=== PATIENT | male | born 1965 | race Caucasian/White ===

== ENCOUNTER 2017-07-02 15:37 | Emergency (ER) | payer OTHER ==
[~2017-07-02] VITALS: Ht 175.3 cm; Wt 79.4 kg
[~2017-07-02 15:37] MED LIST: CLIN300C3 PO; DIPH1TAB45 PO; IBUP-15 PO; LISI-556 PO; LOVA10TA PO; MECL25TA3 PO; METF-380 PO; METF500T4 PO; NAPR-243 PO; NAPR250T PO; OMEP20CA12 PO; ONDA4TAB8 PO; PANT40TA2 PO; SCOP1PAT TD; SUCR1TAB36 PO
[2017-07-02] MEDS ORDERED: MELO15TA39 (16:04)
[2017-07-02] MEDS ORDERED: FENO160T12 (16:04)
[2017-07-02] MEDS ORDERED: ATOR10TA66 (16:04)
[2017-07-02] MEDS ORDERED: LISI2.5T (16:04)
[2017-07-02] MEDS ORDERED: NS IV 1000 ML 1,000 ML IV ONE (16:04)
[2017-07-02] MEDS ORDERED: METF500T4 PO (16:05)
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
[2017-07-02 16:36] LABS: BASOPHILS % (AUTO) 0 % (0-10); EOSINOPHILS # (AUTO) 0.4 10^3/uL (0.0-0.3); EOSINOPHILS % (AUTO) 3 % (0-10); LYMPHOCYTES # (AUTO) 4.9 X 10^3 (1.0-4.0); LYMPHOCYTES % (AUTO) 35 % (12-44); MEAN CORPUSCULAR HEMOGLOBIN 31 PG (25-34); MEAN CORPUSCULAR HGB CONC 37 G/DL (32-36); MEAN CORPUSCULAR VOLUME 84 FL (80-99); MEAN PLATELET VOLUME 11.1 FL (7.4-10.4); MONOCYTES # (AUTO) 0.8 X 10^3 (0.0-1.0); MONOCYTES % (AUTO) 5 % (0-12); NEUTROPHILS % (AUTO) 57 % (42-75); PLATELET COUNT 337 10^3/uL (130-400); RED CELL DISTRIBUTION WIDTH 12.4 % (10.0-14.5)
[2017-07-02] MEDS ORDERED: inSUlin (REGULAR) HUMAN 1 UNIT/0.01 ML (CHARGE PER UNIT) IV STA (16:37)
[2017-07-02 16:46] LABS: ALBUMIN 4.5 GM/DL (3.2-4.5); BILIRUBIN,TOTAL 0.5 MG/DL (0.1-1.0); CALCIUM 9.9 MG/DL (8.5-10.1); CREATININE SERUM 1.41 MG/DL (0.60-1.30); POTASSIUM 3.7 MMOL/L (3.6-5.0); TOTAL PROTEIN 7.1 GM/DL (6.4-8.2)
[2017-07-02 17:01] LABS: ATYPICAL LYMPHOCYTES 3 %; BAND NEUTROPHILS 0 %; BASOPHILS % (MANUAL) 0 %; EOSINOPHILS % (MANUAL) 1 %; LYMPHOCYTES % (MANUAL) 37 %; NEUTROPHILS % (MANUAL) 53 %
[2017-07-02 17:08] LABS: BILIRUBIN,URINE NEGATIVE (NEGATIVE); KETONES,URINE NEGATIVE (NEGATIVE); LEUKOCYTE ESTERASE ,URINE NEGATIVE (NEGATIVE); NITRITE,URINE NEGATIVE (NEGATIVE); PH,URINE 6.5 (5-9); PROTEIN,URINE NEGATIVE (NEGATIVE); UROBILINOGEN,URINE 1 MG/DL (NORMAL)
[2017-07-02 17:17] LABS: SQUAMOUS EPITHELIAL CELL,UR RARE /HPF
--- NOTE | 2017-07-02 18:46 | Diagnostic Imaging Report ---
PROCEDURE: CT urinary tract, rule out kidney stone. TECHNIQUE: Multiple contiguous axial images were obtained through the abdomen and pelvis without the use of intravenous contrast. DATE: July 02, 2017. COMPARISON: [facility] June 15, 2015. CT abdomen and pelvis April 27, 2011. INDICATION: 51-year-old male, right flank pain for 2 months. FINDINGS: There are limitations for evaluation of the abdominal organs, neoplastic processes, abscess, and limited evaluation of the vasculature relating to the lack of intravenous contrast. There is a 4 mm pleurally based right middle lobe pulmonary nodule on axial image 10 unchanged since April 27, 2011 compatible with benign etiology. There is a partially visualized 2 mm right lower lobe pulmonary nodule on axial image 1 which is present on prior CT. This is grossly unchanged in size although incompletely visualized on current exam. There is very mild atelectasis or scarring in the lingula. Additional visualized portions of the lung bases are clear. The heart is not enlarged. There is no pericardial effusion. The liver is normal in size and contour. There are small areas of relatively increased attenuation within the liver subjacent to the gallbladder fossa compatible with areas of focal fatty sparing. The liver does measure mildly decreased in attenuation consistent with diffuse fatty infiltration of the liver. The gallbladder is unremarkable. There is no intrahepatic or extrahepatic bile duct dilation. There is fatty replacement of the pancreatic parenchyma, particularly in the pancreatic head. There is no abnormal dilation of the main pancreatic duct. The spleen is not enlarged. The adrenal glands are unremarkable. Unremarkable appearance of the renal parenchyma. The urinary collecting systems are not distended. There is no identified renal or ureteral stone. The urinary bladder is unremarkable in appearance. There is diverticulosis without evidence of acute diverticulitis. The intestinal tract is not distended. The appendix is best seen on axial image 105 and adjacent sequential images. There is no evidence of acute appendicitis. There is no free intraperitoneal air. There is a small fat-containing umbilical hernia. There is no drainable fluid collection. There is no free pelvic fluid. There are atherosclerotic calcifications. There is a retroaortic left renal vein. There is no identified abnormally enlarged lymph node in the abdomen or pelvis which meets CT size criteria for adenopathy. There is a 5 mm sclerotic lesion in the right intertrochanteric femur on axial image 149 with narrow zone of transition. This most likely is benign although is not specific. There is no identified acute bony abnormality. There is transitional lumbosacral anatomy. IMPRESSION: CT ABDOMEN AND PELVIS. 1. Mild diffuse fatty infiltration of the liver. 2. No identified acute abnormality within the abdomen or pelvis. Dictated by: Dictated on workstation # [id number]
[2017-07-02] MEDS ORDERED: NFMET1000 PO (19:22)
[2017-07-02] MEDS ORDERED: METO-270 PO (19:22)
[2017-07-02 19:37] VITALS: BP 121/74
== END 2017-07-02 19:37 | disposition home or self-care (01) ==
LOC: EDUNIT# 15:37 → ER 15:39
DX: E11.65 Type 2 diabetes mellitus with hyperglycemia (principal); T38.3X5A Adverse effect of insulin and oral hypoglycemic [antidiabetic] drugs, initial encounter; E78.00 Pure hypercholesterolemia, unspecified; I10 Essential (primary) hypertension; Z79.84 Long term (current) use of oral hypoglycemic drugs
CPT/HCPCS: 36415; 74176; 80053; 81000; 82962; 85007; 85027; 96361; 96374

== ENCOUNTER 2017-08-03 11:47 | Outpatient (CLI) | payer OTHER ==
[~2017-08-03] VITALS: Ht 175.3 cm; Wt 80.4 kg
[~2017-08-03 11:47] MED LIST changes: +ATOR10TA66; +FENO160T12; +LISI2.5T; +MELO15TA39; +METO-270 PO; +NFMET1000 PO
[2017-08-03] MEDS ORDERED: MELO15TA39 PO (12:03)
[2017-08-03] MEDS ORDERED: METO-270 PO (12:03)
[2017-08-03] MEDS ORDERED: FENO160T12 PO (12:03)
[2017-08-03] MEDS ORDERED: ATOR10TA66 PO (12:03)
[2017-08-03] MEDS ORDERED: METF1000 PO (12:03)
[2017-08-03 12:07] VITALS: BP 147/85
[2017-08-03 12:32] LABS: BASOPHILS % (AUTO) 0 % (0-10); EOSINOPHILS # (AUTO) 0.4 10^3/uL (0.0-0.3); EOSINOPHILS % (AUTO) 5 % (0-10); LYMPHOCYTES % (AUTO) 47 % (12-44); MEAN CORPUSCULAR HEMOGLOBIN 32 PG (25-34); MEAN CORPUSCULAR HGB CONC 36 G/DL (32-36); MEAN CORPUSCULAR VOLUME 88 FL (80-99); MEAN PLATELET VOLUME 10.7 FL (7.4-10.4); MONOCYTES # (AUTO) 0.5 X 10^3 (0.0-1.0); MONOCYTES % (AUTO) 6 % (0-12); NEUTROPHILS # (AUTO) 3.6 X 10^3 (1.8-7.8); NEUTROPHILS % (AUTO) 42 % (42-75); PLATELET COUNT 298 10^3/uL (130-400); RED BLOOD COUNT 4.26 10^6/uL (4.35-5.85); RED CELL DISTRIBUTION WIDTH 12.5 % (10.0-14.5); WHITE BLOOD COUNT 8.6 10^3/uL (4.3-11.0)
== END 2017-08-03 12:51 | disposition home or self-care (01) ==
LOC: PREOP 11:47
PROVIDERS: ATTEND Surgery
DX: Z01.812 Encounter for preprocedural laboratory examination (principal); K42.9 Umbilical hernia without obstruction or gangrene; K21.9 Gastro-esophageal reflux disease without esophagitis; R11.2 Nausea with vomiting, unspecified; Z80.0 Family history of malignant neoplasm of digestive organs
CPT/HCPCS: 36415; 85025; 87081

== ENCOUNTER 2017-08-09 07:50 | Day surgery (SDC) | payer OTHER ==
[~2017-08-09] VITALS: Ht 175.3 cm; Wt 80.4 kg
[~2017-08-09 07:50] MED LIST changes: +ATOR10TA66 PO; +FENO160T12 PO; +MELO15TA39 PO; +METF1000 PO
--- OUTSIDE RECORDS SUMMARY | 2017-08-09 07:54 | XMS REPORT | Continuity of Care Document ---
Author Author [facility] [employer]. Organization [facility]. Address Unknown Phone Unavailable Care Team Providers Care Edge Grinder Name Role Phone Unavailable Unavailable Insurance Providers Payer Name Policy Number Subscriber Name Relationship [facility] [id number] EH YOUNG SELF / SAME PATIENT Advance Directives Directive Response Recorded Date/Time Advance Directives: Unknown 08/13/15 0:15am Chief Complaint and Reason for Visit Reason for Visit ER ADMIT Problems Medical Problems Problem Onset Date Status Chest pain Unknown Active H. pylori infection Unknown Active Chest pain Unknown Active Medications Medication Dose Route Sig Days/Qty Instructions Order Date Discontinued Date Status metFORMIN (Glucophage) 500 MG TABLET 500 MG ORAL Active Omeprazole (Prilosec) 40 MG CAPSULE 40 MG ORAL Once daily PRN acid 10 Qty 08/12/15 08/13/15 Discontinued Clarithromycin (Biaxin) 500 MG TABLET 250 MG ORAL 0800,1700 13 Qty 03/22 Active Amoxicillin (Amoxil*) 250 MG CAPSULE 250 MG ORAL Every eight hours 00,08, 16 39 Qty 08/13/15 Active Omeprazole (Prilosec) 40 MG CAPSULE 40 MG ORAL Twice daily 60 Qty 08/13 Active Social History Social History Problem Response Recorded Date/Time Occupation/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 Appointment Information Follow-up with PCP within 1 week. Referral to GI for outpatient EGD due to +H pylori. Plan of Care Problem: Diminished stamina Goal: Regain independent living Instructions: SEE LUISA PER APPN'T Plan of Care Discharge Date 08/13/15 4:50pm Disposition HOME, SELF-CARE or ASST LIVING Instructions/Education Provided Omeprazole (By mouth) Amoxicillin (By mouth) Clarithromycin (By mouth) Chest Pain (ED) Chest Pain (DC) Prescriptions See Medications Section Referrals FAMILY PRACTICE 1 Week PCP GASTROENTEROLOGY 2 Weeks GASTRO Functional Status Query Response Date Recorded Paralysis: N August 13, 2015 0:15am Steady Gait: Y August 13, 2015 7:39am Weakness: N August 13, 2015 0:15am Hand Intelligence Director Equal: Y August 13, 2015 7:39am Contractures: N August 13, 2015 0:15am Alert: Y August 13, 2015 7:39am Oriented x4: Y August 13, 2015 7:39am Allergies, Adverse Reactions, Alerts Allergen Type Severity Reaction Status Last Updated No Known Allergies Allergy Unknown Active 08/12/15 Immunizations Name Date Given Type Tetanus Yes Historical Hepatitis N Historical Vital Signs Vital Reading Collection Date/Time Result Blood Pressure 08/13/15 12:17pm 127/79 Blood Pressure Source 08/13/15 12:17pm BARRY Patient Temperature 08/13/15 12:17pm 97.8 Temperature Source 08/13/15 12:17pm O Respiratory Rate 08/13/15 12:17pm 22 Pulse Rate 08/13/15 12:17pm 86 Pulse Location 08/13/15 12:17pm DYN Bedside Pulse Oximetry 08/13/15 12:17pm 97 Height 08/12/15 11:19pm 175.3 cm Height 08/12/15 11:19pm 5 ft 9 in Weight 08/12/15 11:19pm 76.4 kg Weight 08/12/15 11:19pm 168.0 lb Body Mass Index 08/12/15 11:19pm 24.9 Procedures No Known History of Procedures. Results Test Source Date Result Interp. Ref. Range Comments Rapid Troponin I 08/12/15 <0.02 ng/mL 0.00 - 0.08 Lipase 08/12/15 28 U/L 23 - 300 D-Dimer 08/12/15 < 200.00 ng/mLDDu L 200 - 230 Helicobacter pylori IgG Antibody 08/12/15 POSITIVE H - B-Type Natriuretic Peptide 08/12/15 <15 pg/mL 0 - 100 Basophils # 08/13/15 0.0 0.0 - 0.2 Basophils % 08/13/15 0.2 % 0.0 - 2.0 Eosinophils # 08/13/15 0.2 0.0 - 0.7 Eosinophils % 08/13/15 1.3 % 0 - 4.0 Granulocytes # 08/13/15 8.5 H 1.4 - 6.5 Granulocytes (%) 08/13/15 68.1 % 42.2 - 75.2 Hematocrit 08/13/15 40.2 % L 42.0 - 52.0 Hemoglobin 08/13/15 14.4 g/dl 13.5 - 18.0 Lymphocytes # 08/13/15 2.5 1.2 - 3.4 Lymphocytes % 08/13/15 20.3 % 20.0 - 51.0 Mean Corpuscular Hemoglobin 08/13/15 31 pg 27.0 - 31.0 Mean Corpuscular Hemoglobin Concent 08/13/15 36 g/dl 33.0 - 37.0 Mean Corpuscular Volume 08/13/15 87 fl 80.0 - 100.0 Mean Platelet Volume 08/13/15 9.9 fl 7.4 - 10.4 Monocytes # 08/13/15 1.2 H 0.1 - 0.6 Monocytes % 08/13/15 9.5 % H 1.7 - 9.3 Platelet Count 08/13/15 335 K/mm3 130 - 400 Red Blood Count 08/13/15 4.60 M/mm3 4.20 - 5.60 Red Cell Distribution Width 08/13/15 12.9 % 11.5 - 14.5 White Blood Count 08/13/15 12.5 K/mm3 H 4.8 - 10.8 Alanine Aminotransferase (ALT/SGPT) 08/13/15 34 U/L 21 - 72 Albumin 08/13/15 4.2 gm/dL 3.5 - 5.0 Alkaline Phosphatase 08/13/15 97 U/L 50 - 136 Anion Gap 08/13/15 7 mmol/L 7 - 16 Aspartate Amino Transf (AST/SGOT) 08/13/15 21 U/L 15 - 37 Blood Urea Nitrogen 08/13/15 17 mg/dL 9 - 20 Calcium Adjusted for Albumin 08/13/15 8.8 mg/dL 8.4 - 10.2 Calcium Level 08/13/15 9.0 mg/dL 8.4 - 10.2 Carbon Dioxide Level 08/13/15 30 mmol/L 22 - 30 Chloride Level 08/13/15 102 mmol/L 98 - 107 Creatinine 08/13/15 0.84 mg/dL 0.66 - 1.25 Estimated GFR () 08/13/15 117 - Estimated GFR (Non- 08/13/15 97 - Glucose Level 08/13/15 104 mg/dL 74 - 106 Potassium Level 08/13/15 3.7 mmol/L 3.4 - 5.0 Serum Total Protein 08/13/15 6.8 gm/dL 6.4 - 8.2 Sodium Level 08/13/15 138 mmol/L 137 - 145 Total Bilirubin 08/13/15 0.8 mg/dL 0.0 - 1.0 Troponin I 08/13/15 < 0.012 ng/mL 0.000 - 0.034 Whole Blood Glucose 08/13/15 106 mg/dL 70 - 110 Rapid Troponin I 08/12/15 <0.02 ng/mL 0.00 - 0.08 Lipase 08/12/15 28 U/L 23 - 300 D-Dimer 08/12/15 < 200.00 ng/mLDDu L 200 - 230 Helicobacter pylori IgG Antibody 08/12/15 POSITIVE H - B-Type Natriuretic Peptide 08/12/15 <15 pg/mL 0 - 100 Basophils # 08/13/15 0.0 0.0 - 0.2 Basophils % 08/13/15 0.2 % 0.0 - 2.0 Eosinophils # 08/13/15 0.2 0.0 - 0.7 Eosinophils % 08/13/15 1.3 % 0 - 4.0 Granulocytes # 08/13/15 8.5 H 1.4 - 6.5 Granulocytes (%) 08/13/15 68.1 % 42.2 - 75.2 Hematocrit 08/13/15 40.2 % L 42.0 - 52.0 Hemoglobin 08/13/15 14.4 g/dl 13.5 - 18.0 Lymphocytes # 08/13/15 2.5 1.2 - 3.4 Lymphocytes % 08/13/15 20.3 % 20.0 - 51.0 Mean Corpuscular Hemoglobin 08/13/15 31 pg 27.0 - 31.0 Mean Corpuscular Hemoglobin Concent 08/13/15 36 g/dl 33.0 - 37.0 Mean Corpuscular Volume 08/13/15 87 fl 80.0 - 100.0 Mean Platelet Volume 08/13/15 9.9 fl 7.4 - 10.4 Monocytes # 08/13/15 1.2 H 0.1 - 0.6 Monocytes % 08/13/15 9.5 % H 1.7 - 9.3 Platelet Count 08/13/15 335 K/mm3 130 - 400 Red Blood Count 08/13/15 4.60 M/mm3 4.20 - 5.60 Red Cell Distribution Width 08/13/15 12.9 % 11.5 - 14.5 White Blood Count 08/13/15 12.5 K/mm3 H 4.8 - 10.8 Alanine Aminotransferase (ALT/SGPT) 08/13/15 34 U/L 21 - 72 Albumin 08/13/15 4.2 gm/dL 3.5 - 5.0 Alkaline Phosphatase 08/13/15 97 U/L 50 - 136 Anion Gap 08/13/15 7 mmol/L 7 - 16 Aspartate Amino Transf (AST/SGOT) 08/13/15 21 U/L 15 - 37 Blood Urea Nitrogen 08/13/15 17 mg/dL 9 - 20 Calcium Adjusted for Albumin 08/13/15 8.8 mg/dL 8.4 - 10.2 Calcium Level 08/13/15 9.0 mg/dL 8.4 - 10.2 Carbon Dioxide Level 08/13/15 30 mmol/L 22 - 30 Chloride Level 08/13/15 102 mmol/L 98 - 107 Creatinine 08/13/15 0.84 mg/dL 0.66 - 1.25 Estimated GFR () 08/13/15 117 - Estimated GFR (Non- 08/13/15 97 - Glucose Level 08/13/15 104 mg/dL 74 - 106 Potassium Level 08/13/15 3.7 mmol/L 3.4 - 5.0 Serum Total Protein 08/13/15 6.8 gm/dL 6.4 - 8.2 Sodium Level 08/13/15 138 mmol/L 137 - 145 Total Bilirubin 08/13/15 0.8 mg/dL 0.0 - 1.0 Troponin I 08/13/15 < 0.012 ng/mL 0.000 - 0.034 Whole Blood Glucose 08/13/15 106 mg/dL 70 - 110 Encounters Encounter Location Date/Time Discharged Inpatient [facility] 08/13/15 4:50pm Discharged Emergency [facility] 08/12/15 11:09pm Registered Clinical [facility] 08/12/15 7:42pm Recent Diagnosis Chest pain H. pylori infection Chest pain
--- NOTE | 2017-08-09 07:58 | Progress Note-Pre Operative ---
Pre-Operative Progress Note H&P Reviewed The H&P was reviewed, patient examined and no changes noted. Date Seen by Provider: Aug 09, 2017 Time Seen by Provider: 07:55 Date H&P Reviewed: Aug 09, 2017 Time H&P Reviewed: 07:50 Pre-Operative Diagnosis: Symptomatic Umbilical hernia, Screening colonoscopy, Reflux ROSENDO CAAL APRN Aug 09, 2017 7:58 am
[2017-08-09] MEDS ORDERED: HYDROcodone/APAP 5 MG/325 MG (LORTAB) TAB PO ONE (08:00)
[2017-08-09] MEDS ORDERED: ONDANSETRON 4 MG/2 ML (SDV) Z0FRAN IVP PRN ×2 (08:00→12:45)
[2017-08-09] MEDS ORDERED: morphine INJ 10 MG/ML 1ML (SYR OR VIAL) IVP PRN (08:00)
[2017-08-09] MEDS ORDERED: ACETAMINOPHEN 325 MG TABLET/CAPLET (TYLENOL) PO PRN (08:00)
[2017-08-09 08:14] VITALS: BP 138/75
[2017-08-09] MEDS ORDERED: CATHETER FLUSH 10 ML SYR IV PRN (08:15)
[2017-08-09] MEDS ORDERED: ceFAZolin 1 GM/NS 50 ML IVPB IV ONE ×2 (08:15)
[2017-08-09] MEDS ORDERED: SEVOFLURANE (ULTANE) 15 ML INHAL SOLN ONE ×8 (10:26→12:31)
[2017-08-09] MEDS ORDERED: proPOfol 200 MG/20 ML (DIPRIVAN) VIAL IV ONE (10:26)
[2017-08-09] MEDS ORDERED: fentaNYL INJECTION 100 MCG/2 ML AMP ONE ×2 (10:26→11:12)
[2017-08-09] MEDS ORDERED: LIDOCAINE PF 2% 5 ML (XYLOCAINE) VIAL ONE (10:26)
[2017-08-09] MEDS ORDERED: MIDAZOLAM 2 MG/2 ML (VERSED) VIAL ONE (10:26)
[2017-08-09] MEDS ORDERED: ONDANSETRON 4 MG/2 ML (SDV) Z0FRAN ONE (10:26)
[2017-08-09] MEDS ORDERED: BUP/EPI 0.5% 1:200,000 (MARCAINE) 10ML VIAL IJ ONE (10:53)
[2017-08-09] MEDS ORDERED: ESMOLOL 100 MG/10 ML (BREVIBLOC) VIAL ONE (12:31)
--- NOTE | 2017-08-09 12:40 | Progress Note-Post Operative ---
Post-Operative Progess Note Surgeon (s)/Engineer Conductor (s) Surgeon MARVEL NUR MD Engineer Conductor: oliverio roy REGIONAL OPERATIONS DIRECTOR Pre-Operative Diagnosis Symptomatic Umbilical hernia, Screening colonoscopy, Reflux Post-Operative Diagnosis umbilical hernia(2cm), reflux esphagitis, fundal mass/severe gastritis, normal colon and rectum. Procedure & Operative Findings Date of Procedure 08/09/17 Procedure Performed/Findings open umbilical hernia repair with mesh. EGD with bx. Colonoscopy. Anesthesia Type general LMA Estimated Blood Loss Estimated blood loss (mL): minimal Specimens/Packing Specimens Removed antrum, fundal mass, GE jxn MARVEL NUR MD Aug 09, 2017 12:40 pm
[2017-08-09] MEDS ORDERED: HYDR-3816 PO (12:44)
--- NOTE | 2017-08-09 12:45 | Discharge Inst-Surgical ---
D/C Lap Instructions-BOOM New, Converted, or Re-Newed RX: RX on Chart Follow Up Appt in 2 weeks Activity as tolerated No driving for 24 hours No [address] while on pain medications Incentive Spirometry use every 2 hours while awake Regular Diet Symptoms to Report: Fever over 101 degree F, Nausea/Vomiting Infection Signs and Symptoms to report: Increased redness, Foul odor of wound, Increased drainage Bathing instructions: May shower Operative Area Clean/Dry; Keep incision clean/dry If any problems/questions: Contact your physician or go to Emergency Room MARVEL NUR MD Aug 09, 2017 12:45 pm
[2017-08-09] MEDS: morphine INJ 10 MG/ML 1ML (SYR OR VIAL) IVP PRN ×2 (12:48→12:54)
[2017-08-09] MEDS: MEPERIDINE (DEMEROL) INJ 50 MG/ML IVP PRN ×2 (12:50→13:00)
[2017-08-09 13:34] VITALS: BP 114/72
[2017-08-09 13:50] VITALS: BP 119/79
--- NOTE | 2017-08-09 16:25 | OPERATIVE REPORT ---
DATE OF SERVICE: 08/09/2017 ATTENDING PHYSICIAN: Dr. Ballesteros. PREOPERATIVE DIAGNOSES: Symptomatic reducible umbilical hernia, gastroesophageal reflux disease, family history of colon cancer. POSTOPERATIVE DIAGNOSES: Reducible symptomatic umbilical hernia with a defect approximately 2 cm in size and reflux esophagitis class B. There was a fundal patch which may represent a polyp versus and severe gastritis. Colon and rectum were normal. PROCEDURE: Open umbilical hernia repair with mesh. EGD with biopsy, colonoscopy. SURGEON: Dr. Chen. COST ESTIMATOR: Lui Del Toro APRN. ANESTHESIA: General laryngeal mask airway. ESTIMATED BLOOD LOSS: Minimal. FINDINGS: A small umbilical hernia approximately 2 cm in size with omentum within the hernia sac. A reflux esophagitis class B. There was a thickening of the fundus which may indicate a gastric mucosal lesion versus severe gastritis which was biopsied. Overall, there was a moderate severity gastritis in the antrum. Pylorus and duodenum appeared normal with no distal obstructions, small hiatal hernia. Colonoscopy, colon and rectum were normal. DISPOSITION: The patient tolerated the procedure well. INDICATIONS: The patient is a 51-year-old male who we have seen before in the past. We had seen him in August 2015 for gastroesophageal reflux disease and did undergo an EGD and found to have a reflux esophagitis class B, hiatal hernia approximately 2 cm in size as well as a moderate severity gastritis with a small healed ulcer of the body of the stomach and mild duodenitis. We had seen him in the office and he had presented to the Emergency Department where a CT scan was performed which did show an umbilical hernia. Upon examination, he was found to have a small umbilical hernia which was tender to palpation; however reducible. He also has a need of a followup colonoscopy. He does have a family history of colon cancer with his brother having the disease and his last colonoscopy was greater than 5 years ago. DESCRIPTION OF PROCEDURE: The patient was brought to the operating room, laid supine on the table. After adequate IV pain and sedating medications and general laryngeal mask airway intubation, the abdomen was prepped and draped in standard surgical fashion. A 0.5% Marcaine with epinephrine was then used to anesthetize the supraumbilical rim. A crescent-shaped skin incision was made using a 15 blade. The subcutaneous tissue was then dissected using electrocautery. The hernia sac was identified and dissected out using electrocautery. The hernia sac was then opened with a small amount of omentum within the hernia sac. The hernia sac was fully excised and the fascial defect was approximately 2 cm in size. The area around the defect was cleared off exposing good fascia using electrocautery. A medium size 6.4 cm coated polypropylene mesh was then placed into the defect and transfascially sutured to the mesh circumferentially using interrupted #0 Prolene sutures. The subcutaneous tissue was then reapproximated using 3-0 Vicryl interrupted sutures. The skin was closed using 4-0 Monocryl running subcuticular sutures. The wound was then cleaned and covered with Dermabond followed by a tonsil sponges followed by 4 x 4 gauze followed by a large Op-Site. The JAMES was then removed and we proceeded with MAC anesthesia. The mouthpiece was applied. The endoscope was placed in the mouth, visualizing the pharynx and hypopharyngeal region. Vocal cords, epiglottis and vallecula identified and appeared to be normal. The endoscope was then intubated at the esophageal opening, and esophagus is insufflated. The endoscope was then advanced to the first, second and third portions of the esophagus at the level of the GE junction and reflux esophagitis class B identified. There were no ulcers or strictures identified in this region. A biopsy was taken with forceps with visualization of good hemostasis. The endoscope was then easily advanced in the stomach. The endoscope retroflexed, visualizing a small hiatal hernia approximately 1.5 cm in size. At the fundus, there was a thickened area which is a patchy in characteristics and this may indicate a fundal mass versus a severe gastritis. This was biopsied multiple times using forceps with visualization of good hemostasis. A moderate gastritis was noticed throughout the stomach. A biopsy was taken of the stomach antrum for H. pylori with forceps with visualization of good hemostasis. The endoscope was then advanced to the pylorus and the first and second portion of the duodenum, which was normal with no distal obstructions. The patient tolerated this portion of the procedure well. We will recommend the necessary lifestyle and diet accommodations including smoking cessation as well as avoidance of caffeinated beverages, spicy, greasy and acidic foods. He also needs to take in small more frequent meals and avoid eating at night. He is currently on omeprazole which he will need to continue as well. We will also await the biopsy results. Under the same anesthesia, we then proceeded with the colonoscopy portion of the procedure. A digital rectal examination was performed. There were no significant hernias identified. Normal sphincter tone was felt and there were no palpable masses. Prostate gland was palpable and appeared normal. The endoscope was then intubated into the anus and rectum and gently insufflated. The endoscope was then advanced to the valves that adhesed the rectum with no polyps or any neoplasms identified. We then proceeded through the sigmoid colon where no diverticulosis identified. The endoscope was then advanced through the remainder of the descending, transverse, ascending colon and the cecum. These segments were normal as well as there were no polyps or any neoplasms identified throughout the colon or rectum. The endoscope was then slowly withdrawn taking a second look and suctioning of residual air with no additional findings. The patient tolerated the procedure well. We will have him continue with medical management with high fiber diet with at least 30 grams of fiber per day as well as at least 64 fluid ounces of water daily to promote soft stools on a daily basis. We will recommend a followup colonoscopy in 5 years. Job ID: [id number] DocumentID: [id number] Dictated Date: 08/09/2017 12:55:52 [employer] Date: 08/09/2017 16:24:35 Dictated By: MARVEL CHEN MD [facility]
== END 2017-08-09 14:17 | disposition home or self-care (01) ==
LOC: SDC 07:50
PROVIDERS: ATTEND Surgery
DX: K42.9 Umbilical hernia without obstruction or gangrene (principal); Z12.11 Encounter for screening for malignant neoplasm of colon; K21.0 Gastro-esophageal reflux disease with esophagitis; K29.70 Gastritis, unspecified, without bleeding; K44.9 Diaphragmatic hernia without obstruction or gangrene; Z80.0 Family history of malignant neoplasm of digestive organs; E11.9 Type 2 diabetes mellitus without complications; I10 Essential (primary) hypertension; E78.5 Hyperlipidemia, unspecified; M19.91 Primary osteoarthritis, unspecified site; F17.210 Nicotine dependence, cigarettes, uncomplicated; Z79.84 Long term (current) use of oral hypoglycemic drugs; Z79.899 Other long term (current) drug therapy
CPT/HCPCS: 94664

== ENCOUNTER 2019-06-16 09:59 | Outpatient (RCR) | payer OTHER ==
[~2019-06-16 09:59] MED LIST changes: +HYDR-34 PO; +METF-397 PO; +METF-399 PO; -METF1000 PO; -METF500T4 PO; -METO-270 PO; +METO-387 PO; -OMEP20CA12 PO; +OMEP20CA13 PO; -SCOP1PAT TD; +SCOP1PAT11 TD
== END 2019-06-16 15:51 | disposition home or self-care (01) ==
PROVIDERS: ATTEND Orthopaedic Surgery
DX: M25.512 Pain in left shoulder (principal); Z98.890 Other specified postprocedural states